=== PATIENT | female | born 1985 | race Caucasian/White ===

== ENCOUNTER 2018-02-15 19:12 | Emergency (ER) | payer OTHER ==
[~2018-02-15] VITALS: Ht 172.7 cm; Wt 65.9 kg
[2018-02-15 19:13] VITALS: BP 138/83; TEMP 99.3
[2018-02-15 19:48] LABS: BASO % 0.5 % (0.0-2.0); EOS # 0.1 (0.0-0.7); EOS % 1.6 % (0-4.0); GRAN # 2.7 (1.4-6.5); GRAN % 42.4 % (42.2-75.2); HEMOGLOBIN 12.1 g/dl (12.5-16.0); LYMPH % 46.6 % (20.0-51.0); MEAN CELL VOLUME 89 fl (80.0-100.0); MEAN CORPUSCULAR HEMOGLOBIN 29 pg (27.0-31.0); MEAN CORPUSCULAR HGB CONC 33 g/dl (33.0-37.0); MEAN PLATELET VOLUME 9.9 fl (7.4-10.4); MONO # 0.6 (0.1-0.6); MONO % 8.7 % (1.7-9.3); PLATELET COUNT 261 K/mm3 (130-400); RED BLOOD COUNT 4.15 M/mm3 (4.10-5.30); REDCELL DISTRIBUTION WIDTH-CV 14.6 % (11.5-14.5)
[2018-02-15 19:50] LABS: HEMATOCRIT 36.9 % (37.0-47.0)
[2018-02-15 19:59] LABS: ALBUMIN 4.1 gm/dL (3.5-5.0); BILIRUBIN,TOTAL 0.4 mg/dL (0.0-1.0); CALCIUM 8.9 mg/dL (8.4-10.2); CREATININE, serum 0.85 mg/dL (0.52-1.25); POTASSIUM 3.6 mmol/L (3.4-5.0); TOTAL PROTEIN 7.2 gm/dL (6.4-8.2)
[2018-02-15 22:33] VITALS: PULSE 55
== END 2018-02-15 22:33 | disposition home or self-care (01) ==
LOC: COL.ER 19:12
PROVIDERS: Emergency Medicine
DX: G24.9 Dystonia, unspecified (principal); G43.909 Migraine, unspecified, not intractable, without status migrainosus
CPT/HCPCS: J1200; J1885; J7030